=== PATIENT | female | born 1985 | race Caucasian/White ===

== ENCOUNTER 2020-12-26 19:09 | Emergency (ER) | payer MEDICAID, SELFPAY ==
--- NOTE | ~2020-12-26 | CT_ITS ---
EXAMINATION: CT ABDOMEN AND PELVIS WITHOUT CONTRAST CLINICAL INFORMATION: Flank pain. Hematuria. COMPARISON: None TECHNIQUE: Multidetector volumetric imaging was performed from the superior aspect of the liver through the pubic symphysis. Sagittal and coronal reformatted images were obtained on the technologist's workstation. This CT examination was performed using dose optimization techniques as appropriate, variously including the following: *Automated exposure control. *Adjustment of mA and/or kV according to patient size (this includes techniques or standardized protocols for targeted exams where dose is matched to indication/reason for exam; i.e. extremities or head). *Use of iterative reconstruction technique. DLP: 568 mGy-cm FINDINGS: LUNG BASES: The visualized lung bases are unremarkable. LIVER, GALLBLADDER, AND BILIARY TREE: The liver is normal in size, shape, and attenuation. No focal hepatic lesion or biliary ductal dilatation is present. The gallbladder is unremarkable with no evidence of radiopaque gallstones, gallbladder wall thickening, or obvious pericholecystic inflammatory changes. PANCREAS: Unremarkable. SPLEEN: Unremarkable. ADRENAL GLANDS: Unremarkable. KIDNEYS AND URETERS: The kidneys are normal in size, shape, and attenuation. No hydronephrosis, hydroureter, or calculi seen. No perinephric stranding. BLADDER: Non-distended and unremarkable. GASTROINTESTINAL TRACT: No bowel wall thickening or associated inflammatory change. No small or large bowel obstruction. Unremarkable appendix. PERITONEAL CAVITY: No intra-abdominal free air or free fluid. No intra-abdominal mass or organized fluid collection/abscess. ABDOMINAL WALL: No significant hernia is appreciated. LYMPH NODES: No significant lymphadenopathy. VASCULAR: Unremarkable. PELVIC VISCERA: IUD within the uterus. No pelvic mass or fluid collection. No pelvic free fluid. OSSEOUS STRUCTURES: No concerning lytic or blastic osseous lesion. Minimal grade 1 retrolisthesis of L5 on S1 with mild degenerative disc disease. CT/CT abdomen pelvis wo con IMPRESSION: 1. No hydronephrosis or nephrolithiasis. Non-distended and unremarkable urinary bladder. 2. No bowel wall thickening or associated inflammatory change. No small or large bowel obstruction. 3. No intra-abdominal mass, lymphadenopathy, or ascites. 4. Minimal grade 1 retrolisthesis of L5 on S1 with mild degenerative disc disease.
[2020-12-26 19:11] VITALS: BP 121/43; PULSE 77; RESP 18; TEMP 36.5; O2SAT 97; BMI 25.7
--- NOTE | 2020-12-26 19:36 | ED.FEMALEGU ---
HPI - Female Genitourinary General Chief complaint: Urogenital-Female Stated complaint: Hematuria Time Seen by Provider: 12/26/20 22:50 Source: patient Mode of arrival: ambulatory Limitations: no limitations History of Present Illness HPI Narrative: 35-year-old female with left hip labrum tear repair on 12/02/2020 currently on crutches presents with several days of bilateral flank pain, and 1 day of hematuria and headaches. She does not report any fevers, chills, pelvic pressure, vaginal pain, vaginal discharge, risk for sexually transmitted infection, or chest pain or pressure, shortness of breath, palpitations, abdominal distention, nausea, vomiting, and edema. MD elicited complaint: dysuria Onset (ago): day(s) (1) Location of symptoms: flank Severity: moderate Female Urogenital Radiation: L Flank and R Flank Severity scale (1-10): 4 Quality of pain: aching Consistency: intermittent Vaginal discharge: none Vaginal bleeding: none Urinary symptoms: Dysuria, Urgency, Hematuria and Flank Pain Relieving factors: none Associated symptoms: denies other symptoms Treatment prior to arrival: none Sexual activity: Yes Patient : No Related Data Previous Rx's Medication Instructions Recorded cephalexin 500 mg PO Q12H 7 Days #14 cap 12/26/20 ketorolac 10 mg PO TID PRN 5 Days #15 tab 12/26/20 phenazopyridine [Pyridium] 200 mg PO TID PRN #6 tab 12/26/20 Allergies Allergy/AdvReac Type Severity Reaction Status Date / Time No Known Allergies Allergy Verified 12/26/20 19:18 Review of Systems Review of Systems: Constitutional: No Fever, No Chills ENT/Mouth: No sore throat Eyes: No Eye Pain, No Swelling, No Redness Cardiovascular: No Chest Pain, No SOB Respiratory: No Cough, No Sputum, No Wheezing Gastrointestinal: positive Nausea, no Vomiting, No Diarrhea, positive abdominal pain Genitourinary: positive Dysuria, positive urinary frequency, positive Hematuria, positive Flank Pain, positive hesitancy Musculoskeletal: Positive left hip pain, No Myalgias Skin: No Skin Lesions, No rash Neuro: No Weakness, No Numbness, No Headache Psych: No Anxiety/Panic, No Depression Heme/Lymph: No Bruising, No Lymphadenopathy Endocrine: No Polyuria, No Polydipsia Yes all other systems are reviewed and are negative PMFSH Past Medical History Source: old records reviewed Medical History Asthma Social History Social History Advance Directives: No Advance Directives Information Provided: Yes Physical Exam Vital Signs: Vital Signs: Last Vital Signs Temp 98.4 F 12/26/20 22:14 Pulse 78 12/26/20 23:13 Resp 16 12/26/20 23:13 BP 124/71 12/26/20 23:13 Pulse Ox 98 12/26/20 23:13 Body Mass Index 25.7 Appearance: Alert. Oriented X3. No acute distress. Eyes: Pupils equal, round and reactive to light. ENT: Pharynx normal. Neck: Normal inspection. Neck supple. CVS: Normal heart rate and rhythm. Pulses normal. Respiratory: No respiratory distress. Breath sounds normal. Abdomen: Soft and nontender. Positive bilateral CVA tenderness Skin: Skin warm and dry. Normal skin color. Normal skin turgor. Extremities: Left hip labrum tear repair, laparoscopic surgical incisions no indication of infection, No lower extremity edema. Neuro: No motor deficit. No sensory deficit. Course Course Course Narrative: 35-year-old female with left hip labrum tear repair on 12/02/2020 presents with bilateral flank pain and hematuria. Plan of care is to rule out UTI, pyelo, and sepsis as she is less than 1 month out of general anesthesia. White count 15.9, urinalysis positive for UTI, will give 1 g of IV ceftriaxone. CT abdomen pelvis pending. CT negative for acute findings requiring emergent intervention, incidental finding of L5-S1 disc degeneration. Advised to follow-up with primary care for physical therapy and pain management. Patient verbalized understanding of and agrees plan of care discharge home. MDM - Female Genitourinary MDM Narrative Medical decision making narrative: Kidney stones Differential Diagnosis Differential diagnosis: Likely urinary tract infection, ovarian cyst, ruptured ovarian cyst and cystitis Medical Records Attestation: I reviewed the patient's medical records. Lab Data Attestation: I reviewed the patient's lab results. Result diagrams: 12/26/20 19:48 12/26/20 19:48 Labs: Lab Results 02/13/21 02/13/21 02/13/21 Range/Units 19:48 19:48 19:48 WBC 15.9 H (4.8-10.8) X10*3/uL RBC 4.94 (4.20-5.50) X10*6/uL Hgb 14.5 (12.0-16.0) g/dl Hct 43.8 (37-47) % MCV 88.7 (80-98) fL MCH 29.4 (27.0-33.0) pg MCHC 33.1 (31.0-35.0) g/dl RDW 12.8 (11.0-16.0) % Plt Count 401 H (160-400) X10*3/uL MPV 9.6 (9.4-12.3) fL Immature Gran % (Auto) 0.4 (0.0-0.4) % Neut % (Auto) 79.4 H (45-73) % Lymph % (Auto) 13.8 L (20-40) % [place] % (Auto) 5.2 (2-11) % Eos % (Auto) 0.9 (0-4) % Baso % (Auto) 0.3 (0-2) % Lymph # (Auto) 2.2 (1.2-4.9) X10*3/uL [place] # (Auto) 0.8 (0.1-1.2) X10*3/uL Eos # (Auto) 0.2 (0.0-0.4) X10*3/uL Baso # (Auto) 0.1 (0.0-0.2) X10*3/uL Abs Immat Gran (auto) 0.06 H (0.00-0.03) X10*3/uL Absolute Neuts (auto) 12.6 H (2.0-8.3) X10*3/uL Absolute Nucleated RBC 0.000 (0.0-0.012) X10*3/uL Nucleated RBC % (auto) 0.0 (0.0-0.2) /100WBC PT 12.5 (10.8-13.0) SEC INR 1.1 (0.9-1.1) APTT 40.3 H (24.1-38.0) SEC Sodium (135-145) mmol/L Potassium (3.3-5.1) mmol/L Chloride (96-108) mmol/L Carbon Dioxide (22-29) mmol/L Anion Gap (12-20) BUN (9-16) mg/dL Creatinine (0.5-1.4) mg/dL Estim Creat Clear Calc Estimated GFR Random Glucose (60-115) mg/dL Lactic Acid (0.5-2.0) mmol/L Calcium (8.4-10.2) mg/dL Total Bilirubin (0.0-1.0) mg/dL Direct Bilirubin (0.0-0.5) mg/dL AST (5-31) U/L ALT (0-31) U/L Alkaline Phosphatase (39-117) U/L Total Protein (6.5-8.0) g/dL Albumin (3.5-5.0) g/dL Lipase (8-78) U/L Urine Color STRAW Urine Appearance CLEAR Urine pH 7.0 (5.0-8.0) Ur Specific [place] 1.010 (1.005-1.025) Urine Protein NEG (NEG-TRACE) MG/DL Urine Glucose (UA) NEG (NEG) MG/DL Urine Ketones NEG (NEG) MG/DL Urine Blood 3+ H (NEG) Urine Nitrite NEG (NEG) Ur Leukocyte Esterase 1+ H (NEG) Urine RBC 0-2 (0) /HPF Urine WBC 5-9 H (0-4) /HPF Urine WBC Clumps Ur Squamous Epith Cells 3+ /LPF Ur Renal Epithelial Cell Behzad Biurate Crystals Calcium Carbonate Cryst Calcium Phosphate Cryst Calcium Oxalate Crystal Leucine Crystals Cystine Crystals Uric Acid Crystals Triple Phos Crystals Talc Crystals Tyrosine Crystals Other Crystals Amorphous Sediment Urine Bacteria 1+ /LPF Epithelial Casts Fatty Casts Hyaline Casts Granular Casts Waxy Casts RBC Casts WBC Casts Other Casts Urine Mucus Urine Trichomonas Urine Yeast Urine Sperm Ur Oval Fat Bodies Urine Test NEGATIVE (NEGATIVE) 12/26/20 12/26/20 12/26/20 Range/Units 19:48 19:48 20:31 WBC (4.8-10.8) X10*3/uL RBC (4.20-5.50) X10*6/uL Hgb (12.0-16.0) g/dl Hct (37-47) % MCV (80-98) fL MCH (27.0-33.0) pg MCHC (31.0-35.0) g/dl RDW (11.0-16.0) % Plt Count (160-400) X10*3/uL MPV (9.4-12.3) fL Immature Gran % (Auto) (0.0-0.4) % Neut % (Auto) (45-73) % Lymph % (Auto) (20-40) % [place] % (Auto) (2-11) % Eos % (Auto) (0-4) % Baso % (Auto) (0-2) % Lymph # (Auto) (1.2-4.9) X10*3/uL [place] # (Auto) (0.1-1.2) X10*3/uL Eos # (Auto) (0.0-0.4) X10*3/uL Baso # (Auto) (0.0-0.2) X10*3/uL Abs Immat Gran (auto) (0.00-0.03) X10*3/uL Absolute Neuts (auto) (2.0-8.3) X10*3/uL Absolute Nucleated RBC (0.0-0.012) X10*3/uL Nucleated RBC % (auto) (0.0-0.2) /100WBC PT (10.8-13.0) SEC INR (0.9-1.1) APTT (24.1-38.0) SEC Sodium 140 (135-145) mmol/L Potassium 3.9 (3.3-5.1) mmol/L Chloride 102 (96-108) mmol/L Carbon Dioxide 29 (22-29) mmol/L Anion Gap 13 (12-20) BUN 10 (9-16) mg/dL Creatinine 0.75 (0.5-1.4) mg/dL Estim Creat Clear Calc 102.0 Estimated GFR > 60 Random Glucose 96 (60-115) mg/dL Lactic Acid 0.8 (0.5-2.0) mmol/L Calcium 10.2 (8.4-10.2) mg/dL Total Bilirubin 0.7 (0.0-1.0) mg/dL Direct Bilirubin 0.2 (0.0-0.5) mg/dL AST 29 (5-31) U/L ALT 29 (0-31) U/L Alkaline Phosphatase 91 (39-117) U/L Total Protein 7.5 (6.5-8.0) g/dL Albumin 4.8 (3.5-5.0) g/dL Lipase 21 (8-78) U/L Urine Color Cancelled Urine Appearance Cancelled Urine pH Cancelled (5.0-8.0) Ur Specific [place] Cancelled (1.005-1.025) Urine Protein Cancelled (NEG-TRACE) MG/DL Urine Glucose (UA) Cancelled (NEG) MG/DL Urine Ketones Cancelled (NEG) MG/DL Urine Blood Cancelled (NEG) Urine Nitrite Cancelled (NEG) Ur Leukocyte Esterase Cancelled (NEG) Urine RBC Cancelled (0) /HPF Urine WBC Cancelled (0-4) /HPF Urine WBC Clumps Cancelled Ur Squamous Epith Cells Cancelled /LPF Ur Renal Epithelial Cell Cancelled Short Biurate Crystals Cancelled Calcium Carbonate Cryst Cancelled Calcium Phosphate Cryst Cancelled Calcium Oxalate Crystal Cancelled Leucine Crystals Cancelled Cystine Crystals Cancelled Uric Acid Crystals Cancelled Triple Phos Crystals Cancelled Talc Crystals Cancelled Tyrosine Crystals Cancelled Other Crystals Cancelled Amorphous Sediment Cancelled Urine Bacteria Cancelled /LPF Epithelial Casts Cancelled Fatty Casts Cancelled Hyaline Casts Cancelled Granular Casts Cancelled Waxy Casts Cancelled RBC Casts Cancelled WBC Casts Cancelled Other Casts Cancelled Urine Mucus Cancelled Urine Trichomonas Cancelled Urine Yeast Cancelled Urine Sperm Cancelled Ur Oval Fat Bodies Cancelled Urine Test Cancelled (NEGATIVE) Imaging Data CT scan - abdomen: Attestation: I personally reviewed and interpreted this imaging study as follows: Radiologist's impression: [address] [id number] Scan ReportSigned Patient: Latisha PettitMR#: [id number]: 1985Acct:[id number]/Sex: 35 / FADM Date: 12/26/20Loc: [address] Dr: Ordering Physician: GLORY ALLEN NP Date of Service: 12/26/20 Procedure(s): CT abdomen pelvis wo [facility] Accession Number(s): [id number] cc: GARRY,CANDY [employer] SERVICE TECHNICIAN~ EXAMINATION: CT ABDOMEN AND PELVIS WITHOUT CONTRAST CLINICAL INFORMATION: Flank pain. Hematuria. COMPARISON: None TECHNIQUE: Multidetector volumetric imaging was performed from the superior aspect of the liver through the pubic symphysis. Sagittal and coronal reformatted images were obtained on the technologist's workstation. This CT examination was performed using dose optimization techniques as appropriate, variously including the following: *Automated exposure control. *Adjustment of mA and/or kV according to patient size (this includes techniques or standardized protocols for targeted exams where dose is matched to indication/reason for exam; i.e. extremities or head). *Use of iterative reconstruction technique. DLP: 568 mGy-cm FINDINGS: LUNG BASES: The visualized lung bases are unremarkable. LIVER, GALLBLADDER, AND BILIARY TREE: The liver is normal in size, shape, and attenuation. No focal hepatic lesion or biliary ductal dilatation is present. The gallbladder is unremarkable with no evidence of radiopaque gallstones, gallbladder wall thickening, or obvious pericholecystic inflammatory changes. PANCREAS: Unremarkable. SPLEEN: Unremarkable. ADRENAL GLANDS: Unremarkable. KIDNEYS AND URETERS: The kidneys are normal in size, shape, and attenuation. No hydronephrosis, hydroureter, or calculi seen. No perinephric stranding. BLADDER: Non-distended and unremarkable. GASTROINTESTINAL TRACT: No bowel wall thickening or associated inflammatory change. No small or large bowel obstruction. Unremarkable appendix. PERITONEAL CAVITY: No intra-abdominal free air or free fluid. No intra-abdominal mass or organized fluid collection/abscess. ABDOMINAL WALL: No significant hernia is appreciated. LYMPH NODES: No significant lymphadenopathy. VASCULAR: Unremarkable. PELVIC VISCERA: IUD within the uterus. No pelvic mass or fluid collection. No pelvic free fluid. OSSEOUS STRUCTURES: No concerning lytic or blastic osseous lesion. Minimal grade 1 retrolisthesis of L5 on S1 with mild degenerative disc disease. CT/CT abdomen pelvis wo con IMPRESSION: 1. No hydronephrosis or nephrolithiasis. Non-distended and unremarkable urinary bladder. 2. No bowel wall thickening or associated inflammatory change. No small or large bowel obstruction. 3. No intra-abdominal mass, lymphadenopathy, or ascites. 4. Minimal grade 1 retrolisthesis of L5 on S1 with mild degenerative disc disease. Discharge Plan Discharge Clinical Impression: Urinary tract infection, Degenerative disc disease at L5-S1 level Patient Disposition: Home, Self-Care Instructions: Urinary Tract Infection in Women (ED), Degenerative Disc Disease (ED) Additional Instructions: You were evaluated for bilateral flank pain and hematuria. CT scan of abdomen and pelvis are negative for acute findings requiring emergent intervention. Urinalysis is positive for UTI. Please take Keflex 500 mg p.o. twice a day for the next 7 days. We prescribed Pyridium, this medication helps with bladder pain and spasms. This medication will turn your urine bright orange, this is a normal side effect of this medication. Incidental findings on CT scan shows disc degeneration at L5-S1. You may consider physical therapy or following up with Pain Management for further care. Thank you for choosing this emergency department for evaluation. Please follow-up with primary care physician as needed. Return to the emergency department for any new, concerning, or worsening symptoms. Prescriptions: New cephalexin 500 mg capsule 500 mg PO Q12H 7 Days Qty: 14 RF: 0 phenazopyridine [Pyridium] 200 mg tablet 200 mg PO TID PRN (Reason: pain) Qty: 6 RF: 0 ketorolac 10 mg tablet 10 mg PO TID PRN (Reason: pain) 5 Days Qty: 15 RF: 0 Interventions: ED Discharge Assessment Last Done: 12/26/20 23:22 Discharge Date/Time: 12/26/20 23:25
[2020-12-26 20:00] LABS: Basophils Absolute Auto 0.1 X10*3/uL (0.0-0.2); Basophils Percent Auto 0.3 % (0-2); Eosinophils Absolute Auto 0.2 X10*3/uL (0.0-0.4); Eosinophils Percent Auto 0.9 % (0-4); Hematocrit 43.8 % (37-47); Hemoglobin 14.5 g/dl (12.0-16.0); Imm Gran Abs Auto 0.06 X10*3/uL (0.00-0.03); Imm Gran Pct Auto 0.4 % (0.0-0.4); Lymphocytes Absolute Auto 2.2 X10*3/uL (1.2-4.9); Lymphocytes Percent Auto 13.8 % (20-40); MANUAL DIFF FLAG NO; Mean Corpuscular HGB Conc 33.1 g/dl (31.0-35.0); Mean Corpuscular Hemoglobin 29.4 pg (27.0-33.0); Mean Corpuscular Volume 88.7 fL (80-98); Mean Platelet Volume 9.6 fL (9.4-12.3); Monocytes Absolute Auto 0.8 X10*3/uL (0.1-1.2); Monocytes Percent Auto 5.2 % (2-11); Neutrophils Absolute Auto 12.6 X10*3/uL (2.0-8.3); Neutrophils Percent Auto 79.4 % (45-73); Platelet Count 401 X10*3/uL (160-400); Red Blood Count 4.94 X10*6/uL (4.20-5.50); Red Cell Distribution Width 12.8 % (11.0-16.0); White Blood Count 15.9 X10*3/uL (4.8-10.8)
[2020-12-26 20:01] VITALS: BP 144/78; PULSE 70; RESP 16; O2SAT 99
[2020-12-26] MEDS: Ketorolac Tromethamine 30 MG/ML VIAL IVPUSH (20:01)
[2020-12-26] MEDS: 0.9 % Sodium Chloride 1,000 ML 999 ML IVCONT (20:01)
[2020-12-26 20:03] LABS: Appearance Urine CLEAR; Color Urine STRAW; Glucose Urine UA NEG (NEG); Leukocyte Esterase Urine 1+ (NEG); Nitrite Urine NEG (NEG); UACC Culture Trigger YES; Urine Blood 3+ (NEG); Urine Ketones NEG (NEG); Urine Protein NEG (NEG-TRACE)
[2020-12-26 20:06] LABS: INTERNATIONAL NORM RATIO 1.1 (0.9-1.1); Prothrombin Time 12.5 SEC (10.8-13.0)
[2020-12-26 20:08] LABS: Partial Thromboplastin Time 40.3 SEC (24.1-38.0)
[2020-12-26 20:12] LABS: Bacteria Urine 1+ /LPF; RBC Urine 0-2 /HPF (0); Squamous Epithelial Cell Urine 3+ /LPF
[2020-12-26 20:26] LABS: Lactic Acid 0.8 mmol/L (0.5-2.0)
[2020-12-26 20:31] LABS: Alanine Aminotransferase 29 U/L (0-31); Albumin Level 4.8 g/dL (3.5-5.0); Alkaline Phosphatase 91 U/L (39-117); Anion Gap 13 (12-20); Aspartate Amino Transferase 29 U/L (5-31); Bilirubin Direct 0.2 mg/dL (0.0-0.5); Bilirubin Total 0.7 mg/dL (0.0-1.0); Blood Urea Nitrogen 10 mg/dL (9-16); Calcium 10.2 mg/dL (8.4-10.2); Carbon Dioxide 29 mmol/L (22-29); Chloride 102 mmol/L (96-108); Estimated Glomerular Filt Rate > 60; Glucose Random 96 mg/dL (60-115); Lipase 21 U/L (8-78); Potassium 3.9 mmol/L (3.3-5.1); Sodium 140 mmol/L (135-145); Total Protein 7.5 g/dL (6.5-8.0)
--- NOTE | 2020-12-26 20:51 | PC.NURSE ---
Pt medicated per MAR with Rocephin. Pt reports some relief after Toradol but states pain remains an 06/22. Awaiting CT.
[2020-12-26] MEDS: cefTRIAXone sodium 1 GM in 0.9 % Sodium Chloride 50 ML IV (20:52)
--- NOTE | 2020-12-26 21:19 | PC.NURSE ---
This RN contacting the lab regarding pending upreg. Per lab, the order was missed and it is being run now. Awaiting results. Pt sitting upright in bed, watching TV, awaiting CT. Continue to monitor.
[2020-12-26 21:21] LABS: UPreg QC Valid OK; Urine Pregnancy NEGATIVE (NEGATIVE)
[2020-12-26] MEDS: Morphine Sulfate 4 MG/ML CARTRIDGE IVPUSH (21:49)
--- NOTE | 2020-12-26 21:50 | PC.NURSE ---
Pt returns from CT, reports no relief of pain. This RN discussing with PATENT SOLICITOR pain medication. Per PATENT SOLICITOR, plan for IV Morphine. Pt medicated with Morphine per JAN. Continue to monitor. Awaiting CT results.
[2020-12-26 21:51] VITALS: BP 101/62; PULSE 59; RESP 16
[2020-12-26 22:14] VITALS: BP 110/64; PULSE 65; RESP 18; TEMP 36.9; O2SAT 98
--- NOTE | 2020-12-26 22:52 | PC.NURSE ---
SLIP COVER SEWER at bedside discussing results and plan of care.
[2020-12-26 23:13] VITALS: BP 124/71; PULSE 78; RESP 16; O2SAT 98
[2020-12-26] MEDS: Phenazopyridine HCL 200 MG TABLET PO (23:13)
[2020-12-26] MEDS: traMADoL HCL 50 MG TABLET PO (23:13)
--- NOTE | 2020-12-26 23:15 | PC.NURSE ---
Pt medicated per MAR, VSS. Pt awaiting DC paperwork.
== END 2020-12-26 23:25 | disposition home or self-care (01) ==
PROVIDERS: Nurse Practitioner Family; Emergency Provider Student in an Organized Health Care Education/Training Program; PCP Nurse Practitioner Adult Health
DX: N39.0 Urinary tract infection, site not specified (principal); M51.37 Other intervertebral disc degeneration, lumbosacral region
CPT/HCPCS: 36415; 74176; 80048; 80076; 81001; 81003; 81025; 83605; 83690; 85025; 85610; 85730; 87040; 87086; 87088; 87186; 96361; 96365; 96375; 99284; J0696; J1885; J2270

== ENCOUNTER 2021-02-14 17:57 | Emergency (ER) | payer MEDICAID, SELFPAY ==
--- NOTE | ~2021-02-14 | XR_ITS ---
EXAMINATION: CR ELBOW, LEFT CLINICAL INFORMATION: Evaluate for fracture. Pain. COMPARISON: None TECHNIQUE: AP, lateral, and oblique views of the left elbow. FINDINGS: The bones and soft tissues are normal. No fracture or joint effusion. Alignment is anatomic. Joint spaces are maintained. XR/XR elbow LT 2V IMPRESSION: Normal left elbow.
[2021-02-14 17:58] VITALS: BP 141/76; PULSE 98; RESP 20; O2SAT 94; BMI 26.6
[2021-02-14 18:09] VITALS: BP 150/104; PULSE 104; RESP 20; O2SAT 99
--- NOTE | 2021-02-14 18:19 | ED.GENADULT ---
HPI - General Adult General Chief complaint: Dyspnea Stated complaint: SOB Time Seen by Provider: 02/14/21 19:40 Source: patient Mode of arrival: ambulatory Limitations: no limitations History of Present Illness HPI narrative: Patient presents to the ED for scratchy sore throat for the past 6 weeks with hoarse voice and at times will make her feel like her throat is closing and hard to swallow. Patient has been tested for COVID, mono, and strep and were all negative by her PCP. Patient also had normal labs Done last week by her PCP to evaluate for other concerns. Patient denies any chest pain or shortness of breath. Patient states today having scratchy throat and then she accidently drank water from the shower and strated chokig. . Patient did not eat any food today and just drinking fluids ( juicing). . Related Data Previous Rx's Medication Instructions Recorded cephalexin 500 mg PO Q12H 7 Days #14 cap 12/26/20 ketorolac 10 mg PO TID PRN 5 Days #15 tab 12/26/20 phenazopyridine [Pyridium] 200 mg PO TID PRN #6 tab 12/26/20 hydroxyzine HCl 25 mg PO QID PRN 7 Days #28 tab 02/14/21 Allergies Allergy/AdvReac Type Severity Reaction Status Date / Time No Known Allergies Allergy Verified 12/26/20 19:18 Review of Systems Review of Systems: Yes all other systems are reviewed and are negative Constitutional: Constitutional: Reports as per HPI and Reports no additional constitutional complaints Eyes: Eyes: Reports as per HPI and Reports no additional eye complaints ENT: Reports system reviewed and no additional complaints, except as documented, Reports as per HPI and Reports sore throat Cardiovascular: Cardiovascular: Reports as per HPI and Reports no additional cardiovascular complaints Respiratory: Respiratory: Reports as per HPI and Reports no additional respiratory complaints Gastrointestinal: Gastrointestinal: Reports as per HPI and Reports no additional gastrointestinal complaints Genitourinary: Genitourinary: Reports no additional female genitourinary complaints and Reports as per HPI Musculoskeletal: Musculoskeletal: Reports no additional musculoskeletal complaints and Reports as per HPI Neurologic: Reports system reviewed and no additional complaints, except as documented and Reports as per HPI Psychiatric: Psychiatric: Reports no additional psychiatric complaints and Reports as per HPI [facility] Past Medical History Medical History Asthma IUD (intrauterine device) in place Surgical History (Updated 02/14/21 @ 18:03 by July Singer) History of hip surgery Social History Social History Smoking Status: Never smoker Use of substances other than those prescribed or required for medical reasons: No Advance Directives: No Advance Directives Information Provided: No Physical Exam Vital Signs: Vital Signs: Last Vital Signs Pulse 87 02/14/21 20:30 Resp 16 02/14/21 20:30 BP 117/74 02/14/21 20:30 Pulse Ox 99 02/14/21 20:30 Body Mass Index 26.6 Const: General: cooperative, healthy appearing, comfortable, no acute distress, well developed, alert and awake Orientation/consciousness: patient oriented x3 HENMT: Head: Yes normal to inspection, Yes No palpable skull fracture present, Yes normocephalic, Yes atraumatic, No abrasion, No Verduzco's sign, No contusion, No cranial bruits, No hematoma, No laceration, No occipital foramen tenderness, No palpable skull fracture, No raccoon eyes, No scalp lesion, No scalp tenderness, No Temporal artery tenderness present and No periorbital ecchymosis Throat: Yes posterior oropharynx normal, Yes tonsils normal and Yes uvula midline Eyes: General: appearance normal, both eyes and all related structures Neck: Neck: Yes normal visual inspection, Yes full ROM, Yes no lymphadenopathy, Yes no meningeal signs, Yes trachea midline, Yes supple and No tender Chest: Chest palpation & inspection: normal palpation of entire chest wall Resp: Effort & Inspection: normal respiratory effort and able to speak in complete sentences Auscultation: clear to auscultation bilaterally Cardio: Heart sounds: S1 normal heart sound present and S2 normal heart sound present GI: Inspection: Yes normal to inspection and No abdominal wall ecchymosis Palpation (GI): Soft to palpation, not firm, nontender, no guarding and not rigid : General: No CVA tenderness and Yes no CVA tenderness Back/Spine/Pelvis: Back: no CVA tenderness, No CVA tenderness and No back tenderness Skin: General skin exam: no rashes or lesions noted and elasticity normal Neuro: General: patient oriented x3, no meningeal signs and CN's II-XI intact bilaterally Cranial nerves: Yes CN's II-XII intact bilaterally Extrem: General: Yes normal to inspection and Yes full ROM Psych: Appearance: grossly normal, well kempt and not disheveled Course Course Course Narrative: Patient speaking in full sentences and not using accessory muscles. Not suspecting food bolus. Patient seems anxious. Patient will be given viscous lidocaine to help with sensation of scratchy throat. No need to repeat COVID swab, rapid strep, a mono test due to patient being tested by her [facility] and they were negative. Reevaluation(s) Reevaluation #1: PATIENT STATES FEELING ANXIOUS AND AND ADMITS TO HAVING HISTORY OF ANXIETY IS TO GIVE ATIVAN. PATIENT REQUESTED ATIVAN ORAL PIL SO SHE CAN RELAX. Patient tachycardic due to feeling anxious. Is again not suspecting food bolus. Patient having symptom of dry/scratchy throat, hoarse voice with having moments of sensation of throat closing for the past 6 weeks. Not suspecting any cardiology etiology. Not suspecting PE. Reevaluation #2: Patient gave me access to her [employer] ( [employer]) bring him to an online patient gateway. Patient also gave user name and password. I evaluated lab results which showed patient had recent negative COVID, strep throat, throat culture, and mono. Patient labs are normal. Patient informed me later during ED visit that she had left elbow pain due to trauma to left elbow yesterday. Patient states she hit a left elbow to hard object. Will do left elbow x-ray. Reevaluation #3: Patient swallowed viscous lidocaine with no issue. Patient swallowed water, Ativan, and claritin with no isseus. Patient states she feels better. Patient's voice is clear Patient is not drooling. O2 saturation normal. Patient requests his anxiety medication at discharge. Medical Decision Making MDM Narrative Medical decision making narrative: Laryngitis. Anxiety Discharge Plan Discharge Clinical Impression: Laryngitis Patient Disposition: Home, Self-Care Instructions: Laryngitis (ED), Anxiety (ED) Additional Instructions: Return to the ED immediately for inability tolerate solid food/liquid, crushing chest pain, shortness of breath, chest pain on inspiration drooling, fever, chills, weakness, or any other concerning symptoms. He can take [id number] Cepacol Lozenges to numb throat. Prescriptions: New hydroxyzine HCl 25 mg tablet 25 mg PO QID PRN (Reason: anxiety) 7 Days Qty: 28 RF: 0 No Action cephalexin 500 mg capsule 500 mg PO Q12H 7 Days Qty: 14 RF: 0 phenazopyridine [Pyridium] 200 mg tablet 200 mg PO TID PRN (Reason: pain) Qty: 6 RF: 0 ketorolac 10 mg tablet 10 mg PO TID PRN (Reason: pain) 5 Days Qty: 15 RF: 0 Referrals: Mathew Driver [Physician] - 2 days (Sore throat/laryngitis may need further workup of larynx/vocal cords.) Varinder Frank [Physician] - 2 days (May have esophageal motility issues. Needs workup) Interventions: ED Discharge Assessment Last Done: 02/14/21 21:23 Discharge Date/Time: 02/14/21 21:26 Print Language: Japanese
[2021-02-14] MEDS: Lidocaine HCl Viscous 2 % 15 ML SOLUTION MUCOUS MEM (18:32)
--- NOTE | 2021-02-14 18:43 | PC.NURSE ---
pt is a/o x 3 no sob/marisel noted skin pink warm dry speaks in slight choppy sentences. pt states that she is feeling slightly better since taking the lidocaine. c/o tightness and scratchy throat. mlp (kem) aware.
[2021-02-14] MEDS: LORazepam 0.5 MG TABLET PO (19:33)
--- NOTE | 2021-02-14 20:18 | PC.NURSE ---
pt speaking in full sentences, raspy sounding voice. pt able to swallow p.o. tab and water without cough or choking.
[2021-02-14] MEDS: Loratadine 10 MG TABLET PO (20:26)
--- NOTE | 2021-02-14 20:28 | PC.NURSE ---
PT REPORTS LORAZEPAM HELPED SETTLE THE SPASMS, VOICE SOUNDS BETTER.
[2021-02-14 20:30] VITALS: BP 117/74; PULSE 87; RESP 16; O2SAT 99
== END 2021-02-14 21:26 | disposition home or self-care (01) ==
PROVIDERS: Emergency Provider Internal Medicine
DX: J02.9 Acute pharyngitis, unspecified (principal); F41.1 Generalized anxiety disorder; F43.0 Acute stress reaction; M25.522 Pain in left elbow; Z79.899 Other long term (current) drug therapy
CPT/HCPCS: 73070; 99284

== ENCOUNTER 2021-08-18 13:41 | Emergency (ER) | payer MEDICAID, SELFPAY ==
--- NOTE | ~2021-08-18 | US_ITS ---
EXAMINATION: US ABDOMEN LIMITED CLINICAL INFORMATION: Right upper quadrant pain. COMPARISON: CT abdomen/pelvis dated from 12/26/2020. TECHNIQUE: Real-time imaging of the right upper quadrant abdominal viscera. FINDINGS: PANCREAS: Normal. LIVER: The liver is normal in size. The liver contour is normal. Parenchymal echogenicity is normal. No focal hepatic lesion. There is no intrahepatic biliary duct dilatation seen. GALLBLADDER: There is a hyperechoic lesion off the wall of the fundus measuring up to 0.3 cm, likely representing a polyp or an adherent stone. There is no wall thickening or pericholecystic free fluid. COMMON BILE DUCT: Normal in caliber measuring 0.3 cm in diameter. RIGHT KIDNEY: No hydronephrosis. No renal calculi or focal parenchymal lesions. The kidney measures 11.5 cm in maximum dimension. FREE FLUID: None. US/US abdomen limited IMPRESSION: No acute sonographic abnormalities to explain the patient's symptoms. A 0.3 cm hyperechoic focus in the wall of the gallbladder fundus could represent a polyp or an adherent stone and does not requires further workup.
[2021-08-18 13:47] VITALS: BP 123/70; PULSE 78; O2SAT 98
[2021-08-18 14:47] VITALS: BP 118/71; PULSE 62; RESP 18; TEMP 36.7; O2SAT 98; BMI 27.4
[2021-08-18 15:12] LABS: MANUAL DIFF FLAG NO
[2021-08-18 15:14] LABS: Basophils Percent Auto 0.5 % (0-2); Eosinophils Absolute Auto 0.2 X10*3/uL (0.0-0.4); Eosinophils Percent Auto 2.9 % (0-4); Hematocrit 38.4 % (37-47); Hemoglobin 12.6 g/dl (12.0-16.0); Imm Gran Abs Auto 0.01 X10*3/uL (0.00-0.03); Imm Gran Pct Auto 0.2 % (0.0-0.4); Lymphocytes Absolute Auto 1.8 X10*3/uL (1.2-4.9); Lymphocytes Percent Auto 29.1 % (20-40); Mean Corpuscular HGB Conc 32.8 g/dl (31.0-35.0); Mean Corpuscular Hemoglobin 29.1 pg (27.0-33.0); Mean Corpuscular Volume 88.7 fL (80-98); Mean Platelet Volume 9.5 fL (9.4-12.3); Monocytes Absolute Auto 0.7 X10*3/uL (0.1-1.2); Monocytes Percent Auto 11.4 % (2-11); Neutrophils Absolute Auto 3.5 X10*3/uL (2.0-8.3); Neutrophils Percent Auto 55.9 % (45-73); Platelet Count 334 X10*3/uL (160-400); Red Blood Count 4.33 X10*6/uL (4.20-5.50); Red Cell Distribution Width 12.9 % (11.0-16.0); White Blood Count 6.3 X10*3/uL (4.8-10.8)
[2021-08-18 15:28] LABS: Alanine Aminotransferase 20 U/L (0-31); Albumin Level 4.2 g/dL (3.5-5.0); Alkaline Phosphatase 67 U/L (39-117); Anion Gap 11 (12-20); Aspartate Amino Transferase 20 U/L (5-31); Bilirubin Total 0.4 mg/dL (0.0-1.0); Blood Urea Nitrogen 8 mg/dL (9-16); Calcium 9.5 mg/dL (8.4-10.2); Carbon Dioxide 26 mmol/L (22-29); Chloride 109 mmol/L (96-108); Creatinine Clr Calc Pharmacy 116.4; Estimated Glomerular Filt Rate > 60; Glucose Random 91 mg/dL (60-115); Lipase 24 U/L (8-78); Potassium 3.8 mmol/L (3.3-5.1); Sodium 142 mmol/L (135-145); Total Protein 6.2 g/dL (6.5-8.0)
--- NOTE | 2021-08-18 19:51 | ED.ABDPAIN ---
HPI - Abdominal Pain General Chief Complaint: Abdominal Pain Stated Complaint: ABD PAIN Time Seen by Provider: 08/18/21 19:50 Source: patient Mode of arrival: ambulatory Limitations: no limitations History of Present Illness HPI narrative: Patient hasd history of chronic pain syndrome specially in the hip and the leg was doing okay until 2 days ago when after eating seafood patient patient shifts started having nausea feeling right upper quadrant pain and multiple times she had loose stools patient denies any vomiting no fever today she had only 1 loose bowel. Patient had a CT scan done 01/03 which was negative for gallstones patient asking for ultrasound for the gallbladder as patient still having some discomfort in the upper abdomen Related Data Previous Rx's Medication Instructions Recorded cephalexin 500 mg capsule 500 mg PO Q12H 7 Days #14 cap 12/26/20 ketorolac 10 mg tablet 10 mg PO TID PRN 5 Days #15 tab 12/26/20 phenazopyridine 200 mg tablet 200 mg PO TID PRN #6 tab 12/26/20 (Pyridium) hydroxyzine HCl 25 mg tablet 25 mg PO QID PRN 7 Days #28 tab 02/14/21 mupirocin 2 % topical ointment 1 appl TOPICAL BID #15 g 08/18/21 Allergies Allergy/AdvReac Type Severity Reaction Status Date / Time No Known Allergies Allergy Verified 12/26/20 19:18 Review of Systems Review of Systems Yes all other systems are reviewed and are negative Physical Exam Vital Signs: Vital Signs: Last Vital Signs Temp 98 F 08/18/21 20:32 Pulse 76 08/18/21 20:32 Resp 18 08/18/21 20:32 BP 108/65 08/18/21 20:32 Pulse Ox 97 08/18/21 20:32 Body Mass Index 27.4 Appearance: Alert. Oriented X3. No acute distress. Eyes: No pallor or icterus ENT: Pharynx normal. Oral Mucosa dry Neck: Normal inspection. Neck supple. CVS: Normal heart rate and rhythm. Pulses normal. Respiratory: No respiratory distress. Equal air entry bilateral, no wheezing/rales/rhonchi Abdomen: Soft , diffuse abdominal tenderness mild deep right upper quadrant no rebound tenderness or guarding Bowel sounds are present, no mass palpable, no CVA tenderness Skin: Skin warm and dry. Normal skin color. Normal skin turgor. Extremities: No lower extremity edema. No calf tenderness Neuro: Oriented X 3. Anxious MDM - Abdominal Pain MDM Narrative Medical decision making narrative: Patient with acute diarrhea states that had only 1 bowel movement today ultrasound of the abdomen was negative for gallstones labs are stable no signs of dehydration patient received IV fluids patient advised to follow with primary care doctor have the stool tested. Patient is very anxious keep changing her wrist complaints very demanding and dictating her treatment, Now patient saying that she had few bowel movement today initially she said she had only 1 bowel movement will see if she can get a stool sample for culture 2130: Patient unable to have a bowel movement in the ER is still demanding that she need more testing to be done for her diarrhea. Patient advised to follow with PCP for further evaluation and likely the cause of diarrhea is food which she had 2 days ago and she is feeling better now. Patient again is very dramatic asking for nursing vegetable farming supervisor to intervene Medical Records Attestation: I reviewed the patient's medical records. Lab Data Attestation: I reviewed the patient's lab results. Result diagrams: 08/18/21 14:59 08/18/21 14:59 Labs: Lab Results 08/18/21 08/18/21 08/18/21 Range/Units 14:59 14:59 21:30 WBC 6.3 (4.8-10.8) X10*3/uL RBC 4.33 (4.20-5.50) X10*6/uL Hgb 12.6 (12.0-16.0) g/dl Hct 38.4 (37-47) % MCV 88.7 (80-98) fL MCH 29.1 (27.0-33.0) pg MCHC 32.8 (31.0-35.0) g/dl RDW 12.9 (11.0-16.0) % Plt Count 334 (160-400) X10*3/uL MPV 9.5 (9.4-12.3) fL Immature Gran % (Auto) 0.2 (0.0-0.4) % Neut % (Auto) 55.9 (45-73) % Lymph % (Auto) 29.1 (20-40) % [place] % (Auto) 11.4 H (2-11) % Eos % (Auto) 2.9 (0-4) % Baso % (Auto) 0.5 (0-2) % Lymph # (Auto) 1.8 (1.2-4.9) X10*3/uL [place] # (Auto) 0.7 (0.1-1.2) X10*3/uL Eos # (Auto) 0.2 (0.0-0.4) X10*3/uL Baso # (Auto) 0.0 (0.0-0.2) X10*3/uL Abs Immat Gran (auto) 0.01 (0.00-0.03) X10*3/uL Absolute Neuts (auto) 3.5 (2.0-8.3) X10*3/uL Absolute Nucleated RBC 0.000 (0.0-0.012) X10*3/uL Nucleated RBC % (auto) 0.0 (0.0-0.2) /100WBC Sodium 142 (135-145) mmol/L Potassium 3.8 (3.3-5.1) mmol/L Chloride 109 H (96-108) mmol/L Carbon Dioxide 26 (22-29) mmol/L Anion Gap 11 L (12-20) BUN 8 L (9-16) mg/dL Creatinine 0.67 (0.5-1.4) mg/dL Estim Creat Clear Calc 116.4 Estimated GFR > 60 Random Glucose 91 (60-115) mg/dL Calcium 9.5 D (8.4-10.2) mg/dL Total Bilirubin 0.4 (0.0-1.0) mg/dL AST 20 (5-31) U/L ALT 20 (0-31) U/L Alkaline Phosphatase 67 D (39-117) U/L Total Protein 6.2 L (6.5-8.0) g/dL Albumin 4.2 (3.5-5.0) g/dL Lipase 24 (8-78) U/L Urine Color YELLOW Urine Appearance HAZY Urine pH 6.0 (5.0-8.0) Ur Specific [place] 1.010 (1.005-1.025) Urine Protein NEG (NEG-TRACE) MG/DL Urine Glucose (UA) NEG (NEG) MG/DL Urine Ketones NEG (NEG) MG/DL Urine Blood NEG (NEG) Urine Nitrite NEG (NEG) Ur Leukocyte Esterase NEG (NEG) Discharge Plan Discharge Clinical Impression: Gastroenteritis Leg wound, left Qualifiers: Encounter type: initial encounter Qualified Code(s): S81.802A - Unspecified open wound, left lower leg, initial encounter Patient Disposition: Home, Self-Care Instructions: Wound Infection (ED), Acute Diarrhea (ED) Additional Instructions: Drink plenty of fluids Follow with PCP if not better Imodium for severe diarrhea Apply Bactroban ointment on the nonhealing wound on the left leg twice daily till heals completely Prescriptions: New mupirocin 2 % ointment 1 appl topical BID Qty: 15 RF: 0 No Action cephalexin 500 mg capsule 500 mg PO Q12H 7 Days Qty: 14 RF: 0 phenazopyridine [Pyridium] 200 mg tablet 200 mg PO TID PRN (Reason: pain) Qty: 6 RF: 0 ketorolac 10 mg tablet 10 mg PO TID PRN (Reason: pain) 5 Days Qty: 15 RF: 0 hydroxyzine HCl 25 mg tablet 25 mg PO QID PRN (Reason: anxiety) 7 Days Qty: 28 RF: 0 Interventions: ED Discharge Assessment Last Done: 08/18/21 21:26 [facility] Past Medical History Medical History Asthma IUD (intrauterine device) in place Surgical History History of hip surgery Surgical procedure on lower extremity within past 6 months Social History Social History Alcohol intake: never Patient Tobacco Use Status: Never used Tobacco Use of substances other than those prescribed or required for medical reasons: No Advance Directives: No
[2021-08-18] MEDS: 0.9 % Sodium Chloride 1,000 ML 999 ML IVCONT (20:31)
[2021-08-18 20:32] VITALS: BP 108/65; PULSE 76; RESP 18; TEMP 36.6; O2SAT 97
[2021-08-18 21:36] LABS: Appearance Urine HAZY; Color Urine YELLOW; Glucose Urine UA NEG (NEG); Leukocyte Esterase Urine NEG (NEG); Nitrite Urine NEG (NEG); Urine Blood NEG (NEG); Urine Ketones NEG (NEG); Urine Protein NEG (NEG-TRACE)
[2021-08-18 22:00] VITALS: BP 99/54; PULSE 64; RESP 16; TEMP 36.7; O2SAT 97
--- NOTE | 2021-08-18 22:16 | PC.NURSE ---
PRIMARY RN BRENDA ASKED THIS NURSE CHARGE NURSE TO SPEAK TO PT RE: HER BEING UNHAPPY WITH THE CARE THAT SHE RECEIVED FROM THE MD. THIS RN TRIED TO HAVE A PRODUCTIVE CONVERSATION W/THIS PATIENT BUT SHE WAS VERY DIFFICULT TO KEEP ON TOPIC WITH PRESSURED SPEECH AND CONTINUING TO SWEAR WHILE SPEAKING OUT THE LACK OF CARE SHE RECEIVED TODAY. PT WOULD LIKE TO BE SEEN BY ANOTHER MD. AFTER SPEAKING WITH THE PHYSICIAN WELL MY NURSING HEMODIALYSIS TECHNICIAN HERNANDEZ IT WAS OFFERED TO THE PATIENT TO HAVE HER CHECK BACK IN SINCE HER VISIT WAS COMPLETE W/A DISCHARGE AND A PLAN OF CARE. THE PATIENT STATES I AM NOT FUCKING CHECKING BACK IN, I ALREADY WAITED 6 FUCKING HOURS AT THIS POINT PATIENT REQUESTED TO SPEAK TO MY NURSING HEMODIALYSIS TECHNICIAN, ALSO ASKING FOR THE ED MGR BY NAME. NURSING HEMODIALYSIS TECHNICIAN WAS CONTACTED AND WILL BE COMING DOWN TO SPEAK W/THIS PATIENT
--- NOTE | 2021-08-18 22:30 | PC.NURSE ---
Pt alert and oriented x4. Pt denies abd pain and nausea this shift while being in the ER, pt refused nausea and pain meds when asked. Pt received IV fluids and tolerated well. Pt educated by MD with RN present regarding lab results and ultrasound results, pt given copy of ultrasounds results. Pt educated by MD and RN on discharge instructions and new prescription. Pt refused to sign discharge paperwork. Pt requested to speak to lesly JAVIER, workforce management analyst [place] spoke with patient multiple times. Vitals remain stable, afebrile. IV removed per discharge. workforce management analyst and security to escort patient out of ER.
--- NOTE | 2021-08-18 22:41 | PC.NURSE ---
THIS RN WAS CALLED TO BEDSIDE BY PRIMARY NURSE D/T PT NOT WILLING TO LEAVE ROOM. PT STATES TO THIS RN YOU NEED TO FIND ME A RIDE HOME. PAY FOR AN UBER OR SOMETHING LIKE THAT RN EXPLAINED TAXI'S ARE NOT RUNNING AT THIS TIME, WE DO NOT PROVIDE UBERS, AND SHE DOES NOT NEED THE MEDICAL NECESSITY OF AN AMBULANCE OR CHAIR VAN. PT STATES THEN GET ME A WHEELCHAIR I CANT WALK RN CAME BACK W/WHEELCHAIR, AND ASSISTED PT. PT WHEELED TO WAITING ROOM WHERE SHE PROMPTLY STOMPED HER FEET SLIDING HER WHEELCHAIR BACK INTO THIS RNS LEGS.AND GETTING UP WALKING OUT WITH A VERY STEADY GAIT.
== END 2021-08-18 22:42 | disposition home or self-care (01) ==
PROVIDERS: Emergency Provider Internal Medicine; PCP Internal Medicine
DX: K52.9 Noninfective gastroenteritis and colitis, unspecified (principal); S81.802A Unspecified open wound, left lower leg, initial encounter; J45.909 Unspecified asthma, uncomplicated; X58.XXXA Exposure to other specified factors, initial encounter; Y93.9 Activity, unspecified; Y92.9 Unspecified place or not applicable; Y99.9 Unspecified external cause status
CPT/HCPCS: 36415; 76705; 80053; 81003; 83690; 85025; 96360; 99284; 99285

== ENCOUNTER → 2021-10-05 14:58 | Outpatient (BNVA) | payer OTHER, MEDICAID, SELFPAY | PROVIDERS: PCP Physician Assistant Medical; Visit Provider Nurse Practitioner Family | DX: G89.29 Other chronic pain (principal); M53.3 Sacrococcygeal disorders, not elsewhere classified; M47.816 Spondylosis without myelopathy or radiculopathy, lumbar region; M25.562 Pain in left knee; F11.20 Opioid dependence, uncomplicated | CPT/HCPCS: 99202 ==

== ENCOUNTER → 2021-10-20 15:11 | Outpatient (BNVA) | payer OTHER, MEDICAID, SELFPAY | PROVIDERS: PCP Physician Assistant Medical; Visit Provider Nurse Practitioner Family | DX: F11.20 Opioid dependence, uncomplicated (principal); G89.29 Other chronic pain; M53.3 Sacrococcygeal disorders, not elsewhere classified; M47.816 Spondylosis without myelopathy or radiculopathy, lumbar region; M25.562 Pain in left knee | CPT/HCPCS: 99212 ==

== ENCOUNTER → 2021-11-02 08:04 | Outpatient (BNVA) | payer OTHER, SELFPAY | PROVIDERS: PCP Physician Assistant Medical; Visit Provider Nurse Practitioner Family | DX: Z51.81 Encounter for therapeutic drug level monitoring (principal); F11.20 Opioid dependence, uncomplicated; M53.3 Sacrococcygeal disorders, not elsewhere classified; M47.816 Spondylosis without myelopathy or radiculopathy, lumbar region; M25.562 Pain in left knee; G89.29 Other chronic pain | CPT/HCPCS: 99212 ==

== ENCOUNTER → 2021-12-01 08:46 | Outpatient (BNVA) | payer OTHER, SELFPAY | PROVIDERS: PCP Physician Assistant Medical; Visit Provider Nurse Practitioner Family | DX: G89.29 Other chronic pain (principal); M53.3 Sacrococcygeal disorders, not elsewhere classified; M47.816 Spondylosis without myelopathy or radiculopathy, lumbar region; M25.562 Pain in left knee; Z79.891 Long term (current) use of opiate analgesic | CPT/HCPCS: 99212 ==

== ENCOUNTER → 2021-12-31 13:37 | Outpatient (BNVA) | payer OTHER, SELFPAY | PROVIDERS: PCP Family Medicine; Visit Provider Nurse Practitioner Family | DX: Z51.81 Encounter for therapeutic drug level monitoring (principal); F11.20 Opioid dependence, uncomplicated; M53.3 Sacrococcygeal disorders, not elsewhere classified; M47.816 Spondylosis without myelopathy or radiculopathy, lumbar region; M25.562 Pain in left knee; G89.29 Other chronic pain | CPT/HCPCS: 99212 ==

== ENCOUNTER 2022-02-09 05:42 | Outpatient (REF) | payer OTHER, MEDICAID, SELFPAY ==
--- NOTE | ~2022-02-09 | FL_ITS ---
EXAMINATION: XR FLUOROSCOPY WITH IMAGES CLINICAL INFORMATION: Sacral coccygeal disorder COMPARISON: CT abdomen of December 26, 2020 TECHNIQUE: Fluoroscopy performed by Dr. Johan Barnes. Fluoroscopy time: 0.2 minutes DAP: 0.632 Gycm2 Images: 2 FINDINGS: Needle is seen overlying the left sacroiliac joint FL/FL guidance in treatment room IMPRESSION: Fluoroscopy provided for pain management.
== END 2022-02-09 05:43 | disposition home or self-care (01) ==
LOC: HO.RADIR 05:42
PROVIDERS: Visit Provider Internal Medicine
DX: G89.29 Other chronic pain (principal); M53.3 Sacrococcygeal disorders, not elsewhere classified
CPT/HCPCS: 27096; J1040; Q9967

== ENCOUNTER → 2022-03-09 11:02 | Outpatient (BNVA) | payer OTHER, MEDICAID, SELFPAY | PROVIDERS: PCP Family Medicine; Visit Provider Nurse Practitioner Family | DX: Z13.89 Encounter for screening for other disorder (principal) ==

== ENCOUNTER → 2022-04-13 09:53 | Outpatient (REF) | payer MEDICAID, SELFPAY ==
--- NOTE | 2022-04-13 | ECG_ITS ---
Test Reason : r94.31 Blood Pressure : / mmHG Vent. Rate : 084 BPM Atrial Rate : 084 BPM P-R Int : 178 ms QRS Dur : 096 ms QT Int : 382 ms P-R-T Axes : 063 019 048 degrees QTc Int : 451 ms Normal sinus rhythm Incomplete right bundle branch block Borderline ECG No previous ECGs available Referred By: Lisa Mishra Electronically Signed By:ARIES BROWNING MD
== END ==
LOC: HO.CARD 09:53
PROVIDERS: Visit Provider Psychiatry & Neurology Psychiatry
DX: R94.31 Abnormal electrocardiogram [ECG] [EKG] (principal)
CPT/HCPCS: 93005

== ENCOUNTER 2022-04-22 07:01 | Outpatient (REF) | payer MEDICAID, SELFPAY ==
--- NOTE | ~2022-04-22 | FL_ITS ---
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 COMPARISON: 02/09/2022 TECHNIQUE: Fluoroscopy performed by Dr. Johan Barnes. FLUOROSCOPY TIME: 0.5 minutes DAP: 1.29 Gy-cm2 FLUOROSCOPY IMAGES: 3 FINDINGS: C-arm images demonstrate bilateral needles in the region of the L4-L5 and L3-L4 facet joints. FL/FL guidance in treatment room IMPRESSION: Fluoroscopy used for pain management procedure.
== END 2022-04-22 07:02 | disposition home or self-care (01) ==
LOC: HO.RADIR 07:01
PROVIDERS: Visit Provider Internal Medicine
DX: M47.816 Spondylosis without myelopathy or radiculopathy, lumbar region (principal)
CPT/HCPCS: 64493; 64494; 64495

== ENCOUNTER → 2022-04-25 11:44 | Outpatient (BNVA) | payer MEDICAID, SELFPAY | PROVIDERS: PCP Family Medicine; Visit Provider Internal Medicine | DX: M47.26 Other spondylosis with radiculopathy, lumbar region (principal) | CPT/HCPCS: 99212 ==